=== PATIENT | male | born 1960 | race African-American/Black ===

== ENCOUNTER 2018-09-01 11:12 | Emergency (ER) | payer OTHER ==
[~2018-09-01] VITALS: Ht 180.3 cm; Wt 61.2 kg
[2018-09-01 11:28] VITALS: BP 134/66
[2018-09-01] MEDS ORDERED: FLUC200T4 PO (12:18)
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
== END 2018-09-01 13:12 | disposition home or self-care (01) ==
LOC: ER 11:12
DX: B36.8 Other specified superficial mycoses (principal); F10.20 Alcohol dependence, uncomplicated; Y90.9 Presence of alcohol in blood, level not specified
CPT/HCPCS: 99283